=== PATIENT | male | born 1990 | race Two or more races ===

== ENCOUNTER 2017-03-27 11:08 | Emergency (ER) | payer OTHER ==
[~2017-03-27] VITALS: Ht 177.8 cm; Wt 81.6 kg
--- NOTE | 2017-03-27 11:30 | NUR ---
BBRA FROM THE STREET FOR ABD PAIN, NECK PAIN, PT HAD METH THIS AM, NAD NOTED, VSS, RESP EVEN AND UNLABORED. PT PUT ON MONITOR WAITING FOR MD HAIRSTON.
[2017-03-27 11:49] LABS: BASOPHILS % (AUTO) 0.2 % (0.0-2.0); EOSINOPHILS % (AUTO) 0.1 % (0.0-6.0); HEMATOCRIT 44 % (39-51); LYMPHOCYTES # (AUTO) 1.3 /CMM (0.8-4.8); LYMPHOCYTES % (AUTO) 11.5 % (20.0-44.0); MEAN CORPUSCULAR HEMOGLOBIN 31 PG (26.0-33.0); MEAN CORPUSCULAR HGB CONC 34 g/dl (31.0-36.0); MEAN CORPUSCULAR VOLUME 91 fL (80-96); MONOCYTES # (AUTO) 0.8 /CMM (0.1-1.30); MONOCYTES % (AUTO) 6.9 % (2.0-12.0); NEUTROPHILS % (AUTO) 81.3 % (43.0-81.0); PLATELET COUNT (AUTO) 292 /CMM (150-450); RDW COEFFICIENT OF VARIATION 13.1 (11.5-15.0); RED BLOOD CELL COUNT(AUTO) 4.86 MIL/uL (4.5-6.0); WHITE BLOOD COUNT (AUTO) 11.1 K/uL (4.3-11.0)
[2017-03-27 11:56] LABS: CALCIUM, SERUM 9.9 mg/dL (8.5-10.1); CARBON DIOXIDE 27 mmol/L (21-32); CHLORIDE 103 mmol/L (98-107); CREATININE 1.2 mg/dL (0.6-1.3); GLUCOSE 91 mg/dL (74-106); POTASSIUM 4.5 mmol/L (3.5-5.1); SODIUM SERUM 141 mmol/L (136-145); UREA NITROGEN, BLOOD 23 mg/dL (7-18)
--- NOTE | 2017-03-27 11:57 | NUR ---
PT TO [facility]AN.
[2017-03-27] MEDS ORDERED: IV NS 0.9% 1,000 ML BAG IV ONE (12:00)
[2017-03-27 12:02] LABS: ALANINE AMINOTRANSFERASE 23 U/L (12-78); ALBUMIN 4.7 g/dL (3.4-5.0); ALCOHOL, BLOOD < 3 mg/dL (0-0); ALKALINE PHOSPHATASE 84 U/L (46-116); ASPARTATE AMINOTRANSFERASE 23 U/L (15-37); BILIRUBIN,DIRECT 0.3 mg/dL (0.0-0.2); BILIRUBIN,TOTAL 2.5 mg/dL (0.2-1.0); TOTAL PROTEIN, SERUM 8.6 g/dL (6.4-8.2)
[2017-03-27 12:03] LABS: ACETAMINOPHEN < 2 ug/ml (10-30); SALICYLATE < 2.8 mg/dL (2.8-20.0)
--- NOTE | 2017-03-27 13:25 | NUR ---
URINE SENT TO LAB
[2017-03-27 13:54] LABS: APPEARANCE,URINE Clear (CLEAR); BILIRUBIN,URINE SMALL (NEGATIVE); BLOOD, URINE Negative Ery/uL (NEGATIVE); COLOR,URINE Yellow (YELLOW); KETONES,URINE 15 (NEGATIVE); LEUKOCYTE ESTERASE ,URINE Negative (NEGATIVE); NITRITE, URINE Negative (NEGATIVE); PH,URINE 5.5 (5.0-8.0); PROTEIN,URINE 30 mg/dl (NEGATIVE); UGLUCOSE Negative (NEGATIVE)
[2017-03-27 14:00] LABS: RBC,URINE 0-2 /HPF (0-2); WBC,URINE 0-2 /HPF (0-3)
[2017-03-27 14:01] LABS: BACTERIA,URINE Few /HPF (None Seen); SQUAMOUS EPITHELIAL CELL,UR Few /HPF (None Seen)
[2017-03-27 14:02] LABS: SPERM,URINE Rare /HPF (None Seen)
--- NOTE | 2017-03-27 14:36 | NUR ---
AARON, CRISIS NURSE AT
--- NOTE | 2017-03-27 16:12 | NUR ---
PATIENT IS ACCEPTED AT [facility]. ACCEPTING MD IS DR SEYMOUR. NUMBER FOR REPORT IS [id number] EXT [id number]. AMBULANCE SHOULD STOP BY ER ADMITTING WITH PATIENT FOR REGISTRATION.
--- NOTE | 2017-03-27 16:27 | NUR ---
CALLED [facility] FOR [facility] SPOKE WITH [facility]#[id number]. ETA 1830.
--- NOTE | 2017-03-27 16:27 | NUR ---
REPORT GIVEN TO TIGRE FROM [place].
--- NOTE | 2017-03-27 16:28 | NUR ---
MEAL AT [facility]
[2017-03-27 16:44] VITALS: BP 112/72
== END 2017-03-27 19:04 ==
LOC: ER 11:11
DX: R45.851 Suicidal ideations (principal); F31.9 Bipolar disorder, unspecified; M54.2 Cervicalgia; F17.200 Nicotine dependence, unspecified, uncomplicated; F15.129 Other stimulant abuse with intoxication, unspecified
CPT/HCPCS: 36415; 70450-TC; 70486-TC; 80048-TC; 80076-TC; 80305; 81000-TC; 85025-TC; A4606; G0480; J7030; Z7610